=== PATIENT | male | born 1975 | race Two or more races ===

== ENCOUNTER 2024-02-22 16:35 | Emergency (ER) | payer OTHER ==
[~2024-02-22] VITALS: Ht 185.4 cm; Wt 86.3 kg
[2024-02-22 16:40] VITALS: TEMP 98.3
[2024-02-22] MEDS: KETOROLAC TROMETHAMINE 60 MG/2 ML VIAL IM ONE (22:20)
[2024-02-22] MEDS: METHOCARBAMOL 500 MG TABLET PO ONE (22:20)
[2024-02-22] MEDS: LIDOCAINE 5% TRANSDERMAL PATCH TD ONE (22:21)
[2024-02-22] MEDS ORDERED: METH-659 PO (22:55)
[2024-02-22] MEDS ORDERED: PERCT PO (22:55)
[2024-02-22] MEDS ORDERED: IBUP-1492 PO (22:55)
[2024-02-22] MEDS ORDERED: LIDO700A15 TP (22:58)
[2024-02-22 23:10] VITALS: BP 128/71; PULSE 59; RESP 18
== END 2024-02-22 23:10 | disposition home or self-care (01) ==
LOC: EMS 16:41
DX: S33.9XXA Sprain of unspecified parts of lumbar spine and pelvis, initial encounter (principal); V89.2XXA Person injured in unspecified motor-vehicle accident, traffic, initial encounter; Y93.89 Activity, other specified; Y92.89 Other specified places as the place of occurrence of the external cause; Y99.8 Other external cause status
CPT/HCPCS: 99283; 96372; J1885